=== PATIENT | male | born 1990 | race Caucasian/White ===

== ENCOUNTER 2016-11-15 01:17 | Emergency (ER) | payer OTHER ==
[~2016-11-15] VITALS: Ht 175.3 cm; Wt 127.0 kg
--- NOTE | 2016-11-15 02:19 | ED UPPER/LOWER EXTREMITY COMPL ---
History of Present Illness General Chief Complaint: Lower Extremity Problems Stated Complaint: ? RT LEG CELLULITIS Source: patient Exam Limitations: no limitations Vital Signs & Intake/Output Vital Signs & Intake/Output SEE TRIAGE Allergies Coded Allergies: Penicillins (UNKNOWN 11/15/16) Reconcile Medications Cephalexin (Keflex) 500 MG CAPSULE 1 CAP PO TID INFECTION Sulfamethoxazole/Trimethoprim (Bactrim Ds Tablet) 800 MG-160 MG TABLET 1 TAB PO BID CELLULITIS Triage Nurses Notes Reviewed? yes Onset: Abrupt Duration: day(s): (2) Severity: mild Pain/Injury Location: Right: Leg. No Modifying Factors: none HPI: 26 male presents to the ER for chief complaint of redness and pain to his right leg since yesterday. No fever or chills. No trauma or immobilization. Past History Medical History Any Pertinent Medical History? see below for history Cardiovascular: hyperlipidemia Surgical History Surgical History: non-contributory Psychosocial History What is your primary language Finnish Family History Hx Contributory? No Review of Systems Review of Systems Constitutional: Denies: chills, fever. EENTM: Reports: no symptoms. Respiratory: Denies: short of breath. Cardiovascular: Denies: chest pain. Gastrointestinal/Abdominal: Denies: see HPI. Genitourinary: Reports: no symptoms. Musculoskeletal: Reports: no symptoms. Skin: Reports: erythema. Neurological/Psychological: Reports: no symptoms. Hematologic/Endocrine: Denies: bruising, bleeding. Immunological: Reports: no symptoms. All Other Systems: Reviewed and Negative Physical Exam Physical Exam General Appearance: well developed/nourished, mild distress Head: atraumatic Eyes: Bilateral: PERRL, EOMI. Ears, Nose, Throat: normal pharynx, normal ENT inspection, hearing grossly normal Neck: normal inspection, supple Cardiovascular/Respiratory: regular rate/rhythm Peripheral Pulses: 2+ radial (R), 2+ radial (L) Back: normal inspection Leg Right: tenderness, soft tissue tenderness, erythema Knee Left: normal range of motion, mass Knee Right: normal range of motion, normal inspection Skin: intact, normal color, warm/dry Lymphatic: no anterior cervical ysabel Progress Differential Diagnosis: cellulitis, DVT Plan of Care: Orders Procedure Date/time Status FingerStick- Glucose 11/16 227 Active Departure Departure Time of Disposition: 236 Disposition: HOME OR SELF CARE Condition: Stable Clinical Impression Primary Impression: Cellulitis Referrals: PRATIMA DURHAM MD (PCP/Family) Additional Instructions: Take the Bactrim and Keflex as directed. Take ibuprofen or Tylenol as needed for pain. Please return to the ER for any worsening symptoms, fever, chills or worsening redness. Departure Forms: Customer Survey General Discharge Information Prescriptions: Current Visit Scripts Cephalexin (Keflex) 1 CAP PO TID #30 CAP Sulfamethoxazole/Trimethoprim (Bactrim Ds Tablet) 1 TAB PO BID #20 TAB
[2016-11-15] MEDS ORDERED: KEFLEX500 M1 PO (02:39)
[2016-11-15] MEDS ORDERED: BACTRIM DS TAB1 EACH PO (02:39)
[2016-11-15 02:49] VITALS: BP 152/86
== END 2016-11-15 02:51 ==
LOC: ERH 01:17
DX: L03.115 Cellulitis of right lower limb (principal)